=== PATIENT | female | born 1990 | race Hispanic/Latino ===

== ENCOUNTER 2017-09-19 08:30 | Outpatient (CLI) | payer OTHER | END 2017-09-19 08:31 | disposition home or self-care (01) | LOC: BICULT 08:30 | PROVIDERS: ATTEND Nurse Practitioner Women's Health | DX: N83.202 Unspecified ovarian cyst, left side (principal) | CPT/HCPCS: 76856 ==

== ENCOUNTER 2018-11-15 07:24 | Outpatient (CLI) | payer OTHER ==
--- NOTE | 2018-11-15 09:22 | MRI ---
MRI RIGHT KNEE WITHOUT CONTRAST: Date: 11/15/18 INDICATION: Right knee pain after fall. COMPARISON: Right knee radiograph dated 10/04/18. FINDINGS: No joint effusion is evident. No popliteal cyst is demonstrated. Articular cartilage of the patellofe moral compartment appears relatively well maintained. There is mild diffuse chondral thinning involvi ng the femorotibial compartments. The medial and lateral menisci are intact. The ACL, PCL, MCL, and LCLC are intact. There is some increased T2 signal undermining the IT band on image 12 of series 6 and image 16 of ser ies 1. Very mild subcortical edema is seen involving the lateral femoral condyle. IMPRESSION: 1. Findings most suspicious for IT band syndrome. 2. The ACL, PCL, MCL, and LCLC are intact. 3. The medial and lateral menisci are intact. 4. There is diffuse mild chondral thinning involving the femorotibial compartments. POS: TPC
== END 2018-11-15 07:25 | disposition home or self-care (01) ==
LOC: BICMRI 07:24
PROVIDERS: ATTEND Family Medicine
DX: M23.91 Unspecified internal derangement of right knee (principal)

== ENCOUNTER 2019-06-05 13:56 | Outpatient (CLI) | payer OTHER | END 2019-06-05 13:57 | disposition home or self-care (01) | LOC: DTY/OP 13:56 | PROVIDERS: ATTEND Surgery | DX: E66.01 Morbid (severe) obesity due to excess calories (principal) | CPT/HCPCS: 97802 ==

== ENCOUNTER 2019-07-04 10:29 | Outpatient (CLI) | payer OTHER | END 2019-07-04 10:30 | disposition home or self-care (01) | LOC: DTY/OP 10:29 | PROVIDERS: ATTEND Surgery | DX: E66.01 Morbid (severe) obesity due to excess calories (principal) | CPT/HCPCS: 97802 ==

== ENCOUNTER 2019-08-04 09:00 | Outpatient (CLI) | payer OTHER | END 2019-08-04 09:01 | disposition home or self-care (01) | LOC: DTY/OP 09:00 | PROVIDERS: ATTEND Surgery | DX: E66.01 Morbid (severe) obesity due to excess calories (principal) | CPT/HCPCS: 97802 ==

== ENCOUNTER 2019-10-23 13:19 | Outpatient (CLI) | payer OTHER ==
--- NOTE | 2019-10-23 14:21 | RAD ---
PA AND LATERAL CHEST: 10/23/19 HISTORY: Dyspnea. COMPARISON: 08/13/19 Lung ureña appear clear. No infiltrate identified. Heart and mediastinum unremarkable. Osseous struc tures unremarkable. No interval change noted. IMPRESSION: No acute process. POS: AGW
== END 2019-10-23 13:20 | disposition home or self-care (01) ==
LOC: BICRAD 13:19
PROVIDERS: ATTEND Internal Medicine Critical Care Medicine
DX: R06.00 Dyspnea, unspecified (principal)
CPT/HCPCS: 71046

== ENCOUNTER 2019-11-13 05:36 | Outpatient (CLI) | payer OTHER ==
[2019-11-13 11:15] LABS: #Basophils 0.1 thou/uL (0.0-0.2); #Eosinphils 0.3 thou/uL (0.0-0.7); #Lymphocytes 2.5 thou/uL (1.20-3.40); #Monocytes 0.5 thou/uL (0.11-0.59); #Neutrophils 4.5 thou/uL (1.40-6.50); %Basophils 0.8 % (0.0-1.0); %Eosinophils 4.1 % (0.0-10.0); %Lymphocytes 31.4 % (21.0-51.0); %Monocytes 6.8 % (0.0-10.0); Hemoglobin 14.7 g/dL (12.0-16.0); Mean Corpuscular HGB CONC 33.2 g/dL (32.0-36.0); Mean Corpuscular Hemoglobin 29.3 pg (27.0-31.0); Mean Corpuscular Volume 88.5 fL (78.0-98.0); Mean Platelet Volume 7.1 fL (7.4-10.4); Platelet Count 272 thou/uL (130-400); RBC Distribution Width 11.3 % (11.5-14.5); White Blood Cell (WBC) Count 7.9 thou/uL (4.8-10.8)
[2019-11-13 11:30] LABS: BHCG - Serum Negative (NEGATIVE); Pregs Control Background? CLEAR/WHITE (CLR/WHITE); Pregs Control Bar Appear? YES (CONTROL BAR)
[2019-11-13 11:44] LABS: ALT (SGPT) 58 U/L (8-55); AST (SGOT) 43 U/L (5-34); Albumin 4.3 g/dL (3.5-5.0); Alkaline Phosphatase 72 U/L (40-110); Anion Gap 12 mmol/L (10-20); BUN (Urea Nitrogen) 14 mg/dL (7.0-18.7); Bilirubin, Total 0.6 mg/dL (0.2-1.2); Calc. Creatinine Clearance 0 mL/min (70-130); Carbon Dioxide 26 mmol/L (22-29); Chloride 102 mmol/L (98-107); Estimated GFR-MDRD Greater than 90; Globulin 2.6 g/dL (2.4-3.5); Glucose 87 mg/dL (70-105); Hemoglobin A1c 5.2 % (4.0-6.0); Potassium 3.7 mmol/L (3.5-5.1); Protein, Total 6.9 g/dL (6.0-8.3); Sodium 136 mmol/L (136-145)
[2019-11-14 12:47] LABS: SARS-CoV-2 MS2 Positive; SARS-CoV-2 N Gene Negative; SARS-CoV-2 S Gene Negative; SARS-CoV-2 orf1ab Negative
== END 2019-11-13 05:37 | disposition home or self-care (01) ==
LOC: LABBT 05:36
PROVIDERS: ATTEND Surgery
DX: Z01.818 Encounter for other preprocedural examination (principal); Z11.59 Encounter for screening for other viral diseases; E66.01 Morbid (severe) obesity due to excess calories
CPT/HCPCS: 80053; 83036; 84703; 85025; 87635; 93005; 93010; U0003

== ENCOUNTER 2019-11-13 09:15 | Inpatient (IN) | payer OTHER ==
[2019-11-17] MEDS ORDERED: Ketorolac Tromethamine 30 MG/ML VIAL ONE (11:16)
[2019-11-17] MEDS ORDERED: Lidocaine 1% PF 5 ML VIAL ONE (11:16)
[2019-11-17] MEDS ORDERED: PROPOFOL 200 MG/20 ML VIAL ONE (11:16)
[2019-11-17] MEDS ORDERED: Ondansetron PF 4 MG/2 ML Vial ONE (11:16)
[2019-11-17] MEDS ORDERED: Dexamethasone 20 MG/5 ML VIAL ONE (11:16)
[2019-11-17] MEDS ORDERED: Rocuronium Bromide 10 MG/ML (10ML VIAL) ONE (11:16)
[2019-11-17] MEDS ORDERED: Heparin 5,000 UNITS/ML VIAL ONE (11:58)
[2019-11-17] MEDS ORDERED: Famotidine/PF 20 mg/2ml Vial ONE (12:28)
[2019-11-17] MEDS ORDERED: Midazolam HCl 2 mg/2 ml Vial ONE (12:28)
[2019-11-17] MEDS ORDERED: Bupivacaine 0.25% HCL 30 ML VIAL ONE (12:48)
[2019-11-17] MEDS ORDERED: Lidocaine 1% w/Epinephrine 1:100K 20 ML VIAL ONE (12:48)
[2019-11-17] MEDS ORDERED: Fentanyl 100 MCG/2 ML VIAL ONE ×3 (13:21→15:56)
[2019-11-17] MEDS ORDERED: SUGAMMADEX SODIUM 200 MG/2 ML VIAL ONE (14:21)
[2019-11-17] MEDS ORDERED: HYDROmorphone 2 MG/ML VIAL SLOW IVP PRN (15:25)
[2019-11-17] MEDS ORDERED: Meperidine HCl/PF 25 MG/ML VIAL SLOW IVP PRN (15:25)
[2019-11-17] MEDS ORDERED: Promethazine HCl 25 MG/ML VIAL SLOW IVP PRN (15:25)
[2019-11-17] MEDS ORDERED: Promethazine HCl 25 MG/ML VIAL IM PRN ×3 (15:25→16:21)
[2019-11-17] MEDS ORDERED: Meperidine HCl/PF 25 MG/ML VIAL ONE (15:33)
[2019-11-17] MEDS ORDERED: HYDROmorphone 0.5 MG/0.5 ML SYRINGE ONE (15:39)
[2019-11-17] MEDS ORDERED: Promethazine HCl 25 MG/ML VIAL ONE (15:41)
--- NOTE | 2019-11-17 15:44 | OP ---
DATE OF PROCEDURE: 11/17/2019 PREOPERATIVE DIAGNOSIS: Morbid obesity with a body mass index of 54. POSTOPERATIVE DIAGNOSES: 1. Morbid obesity with a body mass index of 54. 2. Paraesophageal hiatal hernia, moderate to large. PROCEDURES PERFORMED: 1. Laparoscopic sleeve gastrectomy with GORE staple line reinforcement and 38-Sinhala bougie. 2. Laparoscopic paraesophageal hiatal hernia repair without mesh for fundoplication. 3. Esophagogastroduodenoscopy. ANESTHESIA: General. ESTIMATED BLOOD LOSS: Minimal. COMPLICATIONS: None. SPECIMENS: Stomach. FINDINGS: Hiatal hernia. DESCRIPTION OF PROCEDURE: The patient was taken to the operating room and laid supine on the operating room table. After general anesthetic was obtained, the arms and legs were double strapped to bariatric table. The abdomen was shaved, prepped, and draped in a sterile fashion. A left subcostal 5-mm Optiview trocar placed in the usual fashion and high-flow pneumoperitoneum was obtained. A left and right abdominal 12-mm ports as well as a right subcostal 5-mm port were placed under direct visualization. A 5-mm incision was made at the xiphoid and a [place] was used to raise the liver off the GE junction. Short gastrics were taken down from the midbody of the stomach to the left salty of the diaphragm. Left salty, posterior fundus, and angle of His were completely dissected. There was a hiatal hernia found. The fundus of the stomach was dissected back into the abdominal cavity. A circumferential dissection of the esophagus was performed. The gastrohepatic ligament was opened as well. The GE junction and fundus were all back down into the abdominal cavity. A 38-bougie was brought and its tip left in the antrum of the stomach. The short gastrics were taken down to a distance of 6 cm proximal to the pylorus. Multiple loads of an [place] stapling device was used to form the sleeve. The first was fired up at a distance of 6 cm proximal to the pylorus and angled up towards the incisura. Care was taken to avoid being to close the incisura. Multiple loads were then fired along the bougie. Stomach was completely transected at the angle of His. Stomach was removed from the left abdominal incision. The fascial defect was closed using GraNee needle and Vicryl tie. The posterior salty was closed using interrupted Ethibond suture in a Ti-Knot system. Bougie was removed as well as the Marixa without injury. EGD scope was passed to the esophagus, stomach to the level of duodenum without obstruction. There was no stricture at the incisura. There was no involvement of the GE junction with the staple line. There was no leakage of air along the staple line. The EGD scope was used to decompress the stomach and was pulled and removed. All port sites were infiltrated using local anesthetic. All ports were removed under camera visualization. Pneumoperitoneum was let down. Vicryl was used to close the fascial defect from the left abdominal incisions. All incisions were irrigated and closed using 4-0 Monocryl and Dermabond. The patient was sent to Recovery in stable condition. All instrument counts, needle counts, and lap counts were correct. Job ID: [id number]
[2019-11-17] MEDS ORDERED: diphenhydrAMINE 50 MG/ML VIAL IVP PRN ×2 (16:13→16:21)
[2019-11-17] MEDS ORDERED: hydrALAZINE 20 MG/ML VIAL SLOW IVP PRN (16:13)
[2019-11-17] MEDS ORDERED: Hydrocodone-Acetamin 15 ML UDCUP PO PRN (16:13)
[2019-11-17] MEDS ORDERED: Ondansetron PF 4 MG/2 ML Vial IVP PRN ×2 (16:13→16:21)
[2019-11-17] MEDS ORDERED: Dextrose 50% Abboject 50 ML SYRINGE SLOW IVP PRN (16:13)
[2019-11-17] MEDS ORDERED: Dextrose 5% in Water 1,000 ML IV PRN (16:13)
[2019-11-17] MEDS ORDERED: diphenhydrAMINE 25 MG CAP PO PRN (16:21)
[2019-11-17] MEDS ORDERED: fentaNYL Citrate/PF 2,000 MCG in Sodium Chloride 0.9% 60 ML IV PRN (16:21)
[2019-11-17] MEDS ORDERED: diphenhydrAMINE 50 MG/ML VIAL IM PRN (16:21)
[2019-11-17] MEDS ORDERED: Naloxone HCl 0.4 mg/ml Vial IV PRN (16:21)
[2019-11-17] MEDS ORDERED: Zolpidem Tartrate 5 MG TAB PO PRN (16:21)
[2019-11-17] MEDS ORDERED: Communication Order-Pharmacy FS SCH (16:30)
[2019-11-17] MEDS: D5 1/2 NS w/20 mEq KCL 1,000 ML IV SCH (17:32)
[2019-11-17 17:53] VITALS: BMI 50.7
[2019-11-17] MEDS ORDERED: Enoxaparin Sodium 40 MG/0.4 ML SYRINGE SC SCH (21:00)
[2019-11-17] MEDS ORDERED: Non-Formulary Item 1 EACH (Symbicort 2 PUFF) INH SCH (21:00)
[2019-11-18] MEDS: D5 1/2 NS w/20 mEq KCL 1,000 ML IV SCH ×3 (05:01→17:18)
[2019-11-18 06:04] LABS: #Lymphocytes 1.5 thou/uL (1.20-3.40); #Monocytes 0.8 thou/uL (0.11-0.59); #Neutrophils 8.5 thou/uL (1.40-6.50); %Basophils 0.1 % (0.0-1.0); %Eosinophils 0.1 % (0.0-10.0); %Lymphocytes 14.3 % (21.0-51.0); %Monocytes 6.9 % (0.0-10.0); %Neutrophils 78.6 % (42.0-75.0); Hemoglobin 12.8 g/dL (12.0-16.0); Mean Corpuscular HGB CONC 33.1 g/dL (32.0-36.0); Mean Corpuscular Hemoglobin 29.7 pg (27.0-31.0); Mean Corpuscular Volume 89.7 fL (78.0-98.0); Mean Platelet Volume 6.9 fL (7.4-10.4); Platelet Count 269 thou/uL (130-400); RBC Distribution Width 11.3 % (11.5-14.5); White Blood Cell (WBC) Count 10.8 thou/uL (4.8-10.8)
[2019-11-18 06:24] LABS: Anion Gap 13 mmol/L (10-20); BUN (Urea Nitrogen) 6 mg/dL (7.0-18.7); Calc. Creatinine Clearance 257 mL/min (70-130); Calcium 8.8 mg/dL (7.8-10.44); Carbon Dioxide 24 mmol/L (22-29); Chloride 105 mmol/L (98-107); Estimated GFR-MDRD Greater than 90; Glucose 116 mg/dL (70-105); Potassium 4.5 mmol/L (3.5-5.1); Sodium 137 mmol/L (136-145)
[2019-11-18] MEDS ORDERED: clonazePAM 1 MG TAB PO SCH (09:00)
[2019-11-18] MEDS ORDERED: Pantoprazole 40 MG VIAL IVP SCH (09:00)
[2019-11-18] MEDS: Hydrocodone-Acetamin 15 ML UDCUP PO PRN ×3 (09:22→16:33)
--- NOTE | 2019-11-18 11:38 | DIS ---
DATE OF ADMISSION: 11/17/2019 DATE OF DISCHARGE: 11/18/2019 ADMIT DIAGNOSIS: Morbid obesity. DISCHARGE DIAGNOSIS: Morbid obesity. PROCEDURES: Laparoscopic sleeve by Dr. Fleming without complication. CONDITION ON DISCHARGE: Improved. HOSPITAL COURSE: On postop day 1, the patient is doing well. She is tolerating liquid diet, complaining of pain at her extraction site, but she is ambulatory. ASSESSMENT: Postoperative day 1, laparoscopic sleeve. PLAN: Discharged home later today as long as nausea is improved. Return to see me in the office in 2 weeks. Job ID: [id number]
[2019-11-18 15:51] VITALS: BP 122/82; TEMP 97.9
== END 2019-11-18 18:00 | disposition home or self-care (01) | DRG 621 ==
LOC: SURG A 11-17 10:56
PROVIDERS: ADMIT Surgery; ATTEND Surgery
PROC: 0DB64Z3 Excision of Stomach, Percutaneous Endoscopic Approach, Vertical (ICD-10-PCS; principal; 2019-11-17)
PROC: 0BQT4ZZ Repair Diaphragm, Percutaneous Endoscopic Approach (ICD-10-PCS; 2019-11-17)
PROC: 0DJ08ZZ Inspection of Upper Intestinal Tract, Via Natural or Artificial Opening Endoscopic (ICD-10-PCS; 2019-11-17)
DX: E66.01 Morbid (severe) obesity due to excess calories (principal); K44.9 Diaphragmatic hernia without obstruction or gangrene; J45.909 Unspecified asthma, uncomplicated; F32.9 Major depressive disorder, single episode, unspecified; F41.9 Anxiety disorder, unspecified; Z68.43 Body mass index [BMI] 50.0-59.9, adult; Z79.899 Other long term (current) drug therapy
CPT/HCPCS: 36415; 80048; 85025; 88307; 88312; 94760; C9113; J0690; J1100; J1170; J1644; J1650; J1885; J2175; J2250; J2405; J2550; J2704; J3010; J3480; S0020; S0028

== ENCOUNTER 2019-12-01 09:54 | Day surgery (SDC) | payer OTHER ==
[2019-12-01] MEDS ORDERED: Sodium Chloride 0.9% 20 ML ONE (10:21)
[2019-12-01] MEDS ORDERED: Multivitamins, Adult 10 ML, Thiamine HCl 100 MG in Sodium Chloride 0.9% 1,000 ML IV SCH (10:30)
[2019-12-01] MEDS ORDERED: Sodium Chloride 0.9% 1,000 ML IV SCH (10:30)
[2019-12-01 14:48] VITALS: BP 117/59
== END 2019-12-01 14:52 | disposition home or self-care (01) ==
LOC: ONC/OP 09:54
PROVIDERS: ATTEND Surgery
DX: E86.0 Dehydration (principal)
CPT/HCPCS: 96361; 96365; 96366; J3411; J7050

== ENCOUNTER 2020-05-29 04:05 | Observation (INO) | payer OTHER ==
[2020-05-29] MEDS ORDERED: Ketorolac Tromethamine 30 MG/ML VIAL ONE (04:19)
[2020-05-29] MEDS ORDERED: Ondansetron PF 4 MG/2 ML Vial ONE ×3 (04:19→08:17)
[2020-05-29 04:42] LABS: #Basophils 0.1 thou/uL (0.0-0.2); #Eosinphils 0.1 thou/uL (0.0-0.7); #Lymphocytes 2.5 thou/uL (1.20-3.40); #Monocytes 0.3 thou/uL (0.11-0.59); #Neutrophils 4.3 thou/uL (1.40-6.50); %Basophils 0.7 % (0.0-1.0); %Eosinophils 1.6 % (0.0-10.0); %Lymphocytes 34.8 % (21.0-51.0); %Monocytes 4.5 % (0.0-10.0); %Neutrophils 58.4 % (42.0-75.0); Hemoglobin 14.7 g/dL (12.0-16.0); Mean Corpuscular Hemoglobin 31.7 pg (27.0-31.0); Mean Corpuscular Volume 93.2 fL (78.0-98.0); Mean Platelet Volume 7.1 fL (7.4-10.4); Platelet Count 234 thou/uL (130-400); Red Blood Cell (RBC) Count 4.62 mill/uL (4.20-5.40); White Blood Cell (WBC) Count 7.3 thou/uL (4.8-10.8)
[2020-05-29 04:46] LABS: BHCG - Serum Negative (NEGATIVE); Pregs Control Background? CLEAR/WHITE (CLR/WHITE); Pregs Control Bar Appear? YES (CONTROL BAR)
[2020-05-29 05:11] LABS: ALT (SGPT) 19 U/L (8-55); AST (SGOT) 34 U/L (5-34); Albumin 4.5 g/dL (3.5-5.0); Alkaline Phosphatase 73 U/L (40-110); Anion Gap 18 mmol/L (10-20); BUN (Urea Nitrogen) 24 mg/dL (7.0-18.7); Bilirubin, Total 0.5 mg/dL (0.2-1.2); Calc. Creatinine Clearance 0 mL/min (70-130); Calcium 9.8 mg/dL (7.8-10.44); Carbon Dioxide 21 mmol/L (22-29); Chloride 104 mmol/L (98-107); Globulin 3.8 g/dL (2.4-3.5); Glucose 82 mg/dL (70-105); Potassium 4.6 mmol/L (3.5-5.1); Protein, Total 8.3 g/dL (6.0-8.3); Sodium 138 mmol/L (136-145)
[2020-05-29] MEDS ORDERED: Morphine 4 MG/ML VIAL ONE ×2 (05:47→08:17)
--- NOTE | 2020-05-29 07:29 | HP ---
TIME OF EVALUATION: Roughly 0620 in ER bed #1. The patient is seen at bedside with Dr. Flores, who is the emergency room provider. CHIEF COMPLAINT: Right-sided lower pelvic pain that was relatively acute onset. 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 She had some nausea associated with it. I was contacted by the emergency room provider because their pelvic ultrasound did not find a mass, but the Sono bench repair technician stated "could not see deep enough." She also was not sure about flow, although she thought she had seen some flow. To help get more information, a pelvic CT was obtained which did not show any distinct masses. REVIEW OF SYSTEMS: A complete review of systems was done at bedside and is otherwise negative unless specified in the HPI. Specifically: GENERAL: No sick contacts. No fever. No chills. PULMONARY: No shortness of breath. CARDIOVASCULAR: No chest pain. : No dysuria. No pain on urination. GI: No constipation or diarrhea. PAST MEDICAL HISTORY: Negative. PAST SURGICAL HISTORY: Gastric sleeve. ALLERGIES: NONE. MEDICATIONS: 1. Albuterol. 2. Sertraline. 3. Multivitamin. SOCIAL HISTORY: Negative for alcohol, tobacco, and drug use. PHYSICAL EXAMINATION: VITAL SIGNS: Her blood pressure is 123/86 with a pulse of 77, she is afebrile. I performed a physical exam: GENERAL: She looks uncomfortable, but is in no acute distress. ABDOMEN: Soft without rebound. She does have some tenderness on deep palpation, suprapubic, and on the right. PELVIC: Deferred LABORATORY DATA: Labs find a white blood cell count that is normal at 7, hematocrit is 43. AST and ALT are normal. test is negative. CT pelvis: I reviewed the films with the ED physician this AM...there is no abnormality noted in the pelvis. ASSESSMENT: This is a 30-year-old, G0, who was at midcycle with right-sided sharp abdominal pain, not otherwise specified. CT scan and ultrasound are negative for any kind of mass. PLAN: 1. I am putting the patient into the gynecology buck[facility] for observation. The emergency room calls me for concern of torsion. Well I understand the acute onset and the clinical presentation, not having a mass and having a negative CT and an ultrasound points away from this diagnosis for me. Nonetheless, I am not sure if this is musculoskeletal, midcycle ovulatory pain, versus possibly torsion of something that we were not seen. I have explained this to the patient. 2. I will keep her n.p.o. for now. 3. IV fluids. 4. Toradol p.r.n. 5. I have called the OR and I have not scheduled her for surgery, but I just made them aware of our condition in case the abdominal exam progresses in severity. 6. I will give report to the oncoming physician, which is at 8 a.m., but for now I am not sure of the etiology of her discomfort. Job ID: [id number] MTDD
--- NOTE | 2020-05-29 08:41 | ULT ---
PRELIMINARY REPORT/[facility]/EMERGENCY AFTER HOURS PROCEDURE: EXAM: US Pelvis, Complete. CLINICAL HISTORY: HX: SEVER RLQ PAIN, HX OF PREV CYST. TECHNIQUE: Transvaginal and transabdominal pelvic ultrasound (complete) with image documentation. COMPARISON: None provided. FINDINGS: ENDOMETRIUM: Normal thickness. UTERUS/CERVIX: Normal size and contour. No fibroid detected. Measures 6.5 x 2.8 x 3.6 cm RIGHT OVARY: Normal follicles. No adnexal mass. Measures 2.1 x 1.5 x 3.8 cm although was difficult to visualize due to its position and flow could not be adequately visualized LEFT OVARY: Normal follicles. No adnexal mass. Normal blood flow. Measures 2.4 x 1.7 x 2.7 cm FREE FLUID: No free fluid. IMPRESSION: Visualization of the RIGHT ovary was impaired due to positioning and flow could not be vi sualized, therefore right-sided ovarian torsion cannot be excluded ELECTRONICALLY SIGNED BY: Dino Dawson MD May 29, 2020 5:29:27 AM SHOT EXAMINER FINAL REPORT ULTRASOUND PELVIC ULTRASOUND TRANSVAGINAL DOPPLER DUPLEX: DATE: 05/29/2020. TIME: 5:09 AM. HISTORY: a 30-year-old female with severe right-sided pelvic pain. TECHNIQUE: Transabdominal transducer and endovaginal transducer used to visualize intrapelvic contents with carpio scale, color-flow, and spectral analysis. FINDINGS: Uterus:6.5 x 3 x 3.5 cm.. Endometrial stripe: Poorly visualized. Not measured. Right ovary: Sheet Manager has typed "2.1 x 1.6 x 3.9 cm." However, there are transabdominal images wh ich measure a structure as approximately 4.9 x 1.5 x 2.2 cm. This is labeled as the right ovary. No flow is detected. It is uncertain whether or not this is actually the right ovary. Left ovary:2.5 x 1.7 x 2.7 cm.. Uterine leiomyoma (fibroid):None. Blood flow in ovaries: Flow demonstrated in left ovary. No flow demonstrated in the structure labeled as the right ovary. Ovarian cyst:None. Free fluid in the cul-de-sac:None. No major disagreement with preliminary report by [facility]. IMPRESSION: An approximate 5 cm structure on the right side labeled by the kettle operator as the right ovary, withou t blood flow demonstrated. It is uncertain whether or not this is actually the right ovary, and if not, there is uncertainty regarding exactly what it is. Transcribed Date/Time: 05/29/2020 9:00 AM
--- NOTE | 2020-05-29 09:02 | CT ---
PRELIMINARY REPORT/[facility]/EMERGENCY AFTER HOURS PROCEDURE: ABDOMINAL AND PELVIC CT WITHOUT IV CONTRAST TECHNIQUE: Non-IV contrast-enhanced axial CT images were obtained through the abdomen and pelvis. Mul tiplanar reformats were provided. History: Right lower quadrant pain Comparison: None FINDINGS: No acute basilar lung abnormality noted. Changes of previous gastric surgery noted. Unenhanced images of the liver and spleen are unremarkable. The gallbladder and biliary system are un remarkable. The adrenal glands appear normal. The unenhanced appearance of both kidneys is unremarkable. No radiodense urinary calculi noted. There is no hydronephrosis or perinephric strand ing. The bladder is unremarkable. The appendix appears normal. The uterus is unremarkable on the basis of CT imaging. Both ovaries are partially obscured by unopacified pelvic bowel loops. No obvi ous adnexal abnormality noted on the basis of CT imaging. No acute bowel abnormality noted. Bowel loops are unremarkable. There is no free fluid or acute inflammatory stranding. The abdominal aorta is non-aneurysmal. Visualized osseous structures are unremarkable for patient's age. IMPRESSION: No acute inflammatory process in the abdomen or pelvis. No radiodense urinary calculi. N o obstructive uropathy. Normal appendix. ELECTRONICALLY SIGNED BY: Torito Gomez MD May 29, 2020 5:50:15 AM SAP BUSINESS ANALYST FINAL REPORT CT ABDOMEN NONCONTRAST CT PELVIS NONCONTRAST: (Urolithiasis protocol) DATE: 05/29/2020. TIME: 5:34 AM. HISTORY: A 30-year-old female with right lower quadrant abdominal pain. History of ovarian cysts. COMPARISON: 09/24/2015. TECHNIQUE: IV injection of iodinated contrast media: None. Oral contrast media: None. FINDINGS: Other than for urolithiasis, the lack of IV and oral contrast limits the evaluation. There is an apparently new finding of an approximately 3.5 x 2.5 x 2 cm soft tissue attenuation struc ture broadly abutting the posterior serosal surface of an anteflexed uterine body. The uterine body and fundus are positioned in the right side of the pelvis. There is no surrounding fat stranding. There are no renal, ureteral, or bladder calculi. Suture line around a small stomach. Normal appendix. No small bowel dilation, colonic diverticulitis, ascites, pneumoperitoneum, pleural effusion, or basi lar pulmonary consolidation. Within the limitations of a noncontrast scan, no abnormality is identified involving liver, abdominal aorta, pancreas, kidneys, adrenals, spleen, or urinary bladder. No major osseous abnormality. No major disagreement with preliminary report by [facility]. IMPRESSION: 1) In general, other than for urolithiasis, CTs of abdomen and pelvis should be performed with IV con trast. 2) A 3.5 cm soft tissue attenuation structure in the right adnexa broadly abutting the uterus. Uncert ain whether or not this represents the right ovary. 3) If patient's symptoms persist, further evaluation with CT of abdomen and pelvis with IV contrast a nd oral contrast, with long bowel prep, is recommended. 4) No urolithiasis or obstructive uropathy. No other potential pathology. Transcribed Date/Time: 05/29/2020 9:16 AM
[2020-05-29] MEDS ORDERED: traMADol HCl 50 MG TAB PO PRN ×2 (10:19)
[2020-05-29] MEDS ORDERED: Ondansetron ORAL SOLN. 4 MG/5 ML UDCUP PO PRN (10:20)
[2020-05-29] MEDS ORDERED: Ketorolac Tromethamine 30 MG/ML VIAL IVP PRN (10:21)
--- NOTE | 2020-05-29 10:42 | PRG ---
DATE OF SERVICE: 05/29/2020 TIME OF SERVICE: 1010 hours. SUBJECTIVE: Ms. Phillip is on the floor. She is resting comfortably. She pain at 6. She denies significant appetite. She denies abdominal distention. She states her pain is somewhat better with her knees bent. OBJECTIVE: VITAL SIGNS: Reveals vital signs stable. Pulse is 85, respirations 18, temperature 98.2. ABDOMEN: Reveals discomfort to palpation in the right lower quadrant without rebound and without significant guarding. extend down to the level of the inguinal canal. There is no CVA tenderness noted. LABORATORY DATA: Reviewed from admission. IMPRESSION: Right lower quadrant pain, uncertain etiology. Negative ultrasound. No evidence of torsion. No elevated white count. No evidence of appendicitis on CT scan. The patient reports that she has had this pain before, this kind of come and gone, but this is the worst it has been. PLAN: Continued observation. Advance to clear liquid diet. director government to tramadol for pain control and repeat CBC at 1800 hours. Anticipate probable discharge home with presumptive diagnosis of mesenteric adenitis with follow her primary care provider. We will re-evaluate this evening. Job ID: [id number]
[2020-05-29] MEDS ORDERED: Polyethylene Glycol 3350 17 GM Packet PO PRN (10:50)
[2020-05-29 11:01] VITALS: BMI 37.9
[2020-05-29] MEDS: Lactated Ringer's 1,000 ML IV SCH ×3 (11:46→20:51)
[2020-05-29] MEDS: Polyethylene Glycol 3350 17 GM Packet PO SCH (11:46)
[2020-05-29] MEDS ORDERED: Ketorolac Tromethamine 30 MG/ML VIAL IVP SCH (12:00)
[2020-05-29 18:14] LABS: #Basophils 0.1 thou/uL (0.0-0.2); #Eosinphils 0.2 thou/uL (0.0-0.7); #Lymphocytes 2.2 thou/uL (1.20-3.40); #Monocytes 0.4 thou/uL (0.11-0.59); #Neutrophils 2.6 thou/uL (1.40-6.50); %Basophils 1.4 % (0.0-1.0); %Eosinophils 3.4 % (0.0-10.0); %Lymphocytes 40.7 % (21.0-51.0); %Monocytes 7.9 % (0.0-10.0); %Neutrophils 46.7 % (42.0-75.0); Mean Corpuscular HGB CONC 34.5 g/dL (32.0-36.0); Mean Corpuscular Hemoglobin 32.3 pg (27.0-31.0); Mean Corpuscular Volume 93.6 fL (78.0-98.0); Mean Platelet Volume 6.9 fL (7.4-10.4); Platelet Count 168 thou/uL (130-400); RBC Distribution Width 10.9 % (11.5-14.5); Red Blood Cell (RBC) Count 3.72 mill/uL (4.20-5.40); White Blood Cell (WBC) Count 5.5 thou/uL (4.8-10.8)
[2020-05-29] MEDS ORDERED: Ondansetron PF 4 MG/2 ML Vial IVP PRN (20:17)
--- NOTE | 2020-05-29 20:25 | PDOC.FPRHP ---
- Allergies/Adverse Reactions Allergies Allergy/AdvReac Type Severity Reaction Status Date / Time No Known Allergies Allergy Verified 05/29/20 10:58 - Home Medications Medication Instructions Recorded Confirmed Type Sertraline HCl 100 mg PO QAM 11/11/19 05/29/20 History Albuterol Sulfate [Albuterol 2 puff INH BID 11/17/19 05/29/20 History Sulfate Hfa] - History PMHx: PSHx: FHx: Social: - Vital signs BP: [] HR: [] RR: [] Tmax: [] Pox: []% on [] Wt: [] FMR H&P: Results - Labs Result Diagrams: 05/29/20 18:03 05/29/20 04:19 Lab results: WBC 5.5 thou/uL (4.8-10.8) 05/29/20 18:03 Hgb 12.0 g/dL (12.0-16.0) 05/29/20 18:03 Hct 34.8 % (36.0-47.0) L 05/29/20 18:03 MCV 93.6 fL (78.0-98.0) 05/29/20 18:03 Plt Count 168 thou/uL (130-400) 05/29/20 18:03 Neutrophils % 46.7 % (42.0-75.0) 05/29/20 18:03 Sodium 138 mmol/L (136-145) 05/29/20 04:19 Potassium 4.6 mmol/L (3.5-5.1) 05/29/20 04:19 Chloride 104 mmol/L (98-107) 05/29/20 04:19 Carbon Dioxide 21 mmol/L (22-29) L 05/29/20 04:19 BUN 24 mg/dL (7.0-18.7) H 05/29/20 04:19 Creatinine 0.65 mg/dL (0.6-1.1) 05/29/20 04:19 Glucose 82 mg/dL (70-105) 05/29/20 04:19 Calcium 9.8 mg/dL (7.8-10.44) 05/29/20 04:19 Total Bilirubin 0.5 mg/dL (0.2-1.2) 05/29/20 04:19 AST 34 U/L (5-34) 05/29/20 04:19 ALT 19 U/L (8-55) 05/29/20 04:19 Alkaline Phosphatase 73 U/L (40-110) 05/29/20 04:19 Serum Total Protein 8.3 g/dL (6.0-8.3) 05/29/20 04:19 Albumin 4.5 g/dL (3.5-5.0) 05/29/20 04:19 FMR H&P: Upper Level - Plan Date/Time: 05/29/202024 I, [], have evaluated this patient and agree with findings/plan as outlined by international representative resident. Pertinent changes/additions are listed here.
--- NOTE | 2020-05-29 22:44 | ULT ---
US Abdominal: 05/29/2020 8:12 PM CLINICAL HISTORY: Abdominal pain. STUDY: Complete abdominal ultrasound COMPARISON: None. FINDINGS: Liver: Size: Normal. Echogenicity: Normal. Contour: Smooth. Mass: None. Common bile duct: 3 mm Gallbladder: Normal. Pancreas: Not visualized Inferior vena cava: Normal in caliber Aorta: Normal in caliber Spleen: No focal lesions. Spleen measuring 10.8 cm in length. Right kidney: No pelvicalyceal dilatation. Right kidney measuring 10.2 cm in length. Left kidney: No pelvicalyceal dilatation. Left kidney measuring 11.0 cm in length. IMPRESSION: Unremarkable exam.
[2020-05-29 23:15] LABS: ALT (SGPT) 14 U/L (8-55); AST (SGOT) 18 U/L (5-34); Albumin 3.3 g/dL (3.5-5.0); Alkaline Phosphatase 51 U/L (40-110); Anion Gap 13 mmol/L (10-20); BUN (Urea Nitrogen) 15 mg/dL (7.0-18.7); Bilirubin, Total 0.6 mg/dL (0.2-1.2); Calc. Creatinine Clearance 219 mL/min (70-130); Calcium 8.3 mg/dL (7.8-10.44); Carbon Dioxide 24 mmol/L (22-29); Chloride 106 mmol/L (98-107); Globulin 2.3 g/dL (2.4-3.5); Glucose 72 mg/dL (70-105); Lipase 46 U/L (8-78); Potassium 4.1 mmol/L (3.5-5.1); Protein, Total 5.6 g/dL (6.0-8.3); Sodium 139 mmol/L (136-145)
[2020-05-30 02:30] LABS: SARS-CoV-2 PCR by NAA Not Detected (NotDetected)
[2020-05-30] MEDS: Lactated Ringer's 1,000 ML IV SCH (06:50)
--- NOTE | 2020-05-30 07:35 | PRG ---
DATE OF SERVICE: 05/30/2020 SUBJECTIVE: Ms. Phillip is resting comfortably. She states her pain has decreased and it is more on a 4 to 5 level now than 6 to 7 before. She did have some nausea overnight. No emesis. OBJECTIVE: VITAL SIGNS: Temperature 97.9, pulse 71, respirations 18, blood pressure 111/65. ABDOMEN: Soft and nondistended. She has bowel sounds in all 4 quadrants. She has mild discomfort to deep palpation in the right lower quadrant. No CVA tenderness noted. LABORATORY DATA: Laboratory workup was completed to make sure the patient did not have any pancreatitis symptoms secondary to her history of gastric sleeve and obesity. Her white count has actually decreased from 7.3 to 5.5. Hematocrit remained stable. Her hematocrit is 35.8. Creatinine is normal at 0.59, and LFTs are normal. COVID-19 is negative. Final report on her abdominal CT from early in the morning of the was obtained which revealed a normal appendix. There is really no definitive findings of possible 5.2 cm soft tissue attenuation in the right adnexa abutting the uterus, probably the right ovary. There was no free fluid noted. Ultrasound was poor technique and not well visualize the right adnexa, but no large mass or significant free fluid was noted. Abdominal ultrasound examining the gallbladder and liver was unremarkable. IMPRESSION: Right lower quadrant pain of uncertain etiology. Suspect resolving cyst and doubt torsion. PLAN: We will repeat ultrasound today and hopefully obtain better technique images. If torsion is present, any cyst that would be present would be enlarged and more definitive over 24 to 36 hours ago and free fluid would be anticipated. If ultrasound is normal, anticipate probable discharge home with close followup. Dr. Isbell will be OB hospitalist taking over at 0800 hours. Job ID: [id number]
[2020-05-30 09:51] VITALS: BP 116/57; TEMP 98.1
--- NOTE | 2020-05-30 09:54 | DIS ---
DATE OF ADMISSION: 05/29/2020 DATE OF DISCHARGE: 05/30/2020 RESIDENT: Sharda Carter, PGY-3. CONSULTS: None. PROCEDURES: 1. Transvaginal ultrasound on 05/29/2020 with an approximate 5 cm structure on the right side labeled as ovary without blood flow demonstrated. Otherwise, the exam is unremarkable. No fibroids or free fluid. 2. Abdominal pelvis CT on 05/29/2020. No acute inflammatory process in the abdomen or pelvis. No radiodense urinary calculi. No obstructive uropathy. Normal appendix. 3. Abdominal ultrasound on 05/29/2020, unremarkable exam. 4. Transvaginal ultrasound on 05/30/2020. Official report read pending. Images reviewed in room. Right ovary visualized with flow, some minimal free fluid noted in the pelvis. 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 MEDICATIONS: Discharge medications; 1. Tylenol 650 as needed. 2. Albuterol. 3. Sertraline. Discontinued medication: None. HISTORY OF PRESENT ILLNESS/HOSPITAL COURSE: Carole is a 30-year-old, G0, who presented with right-sided abdominal pain associated with nausea, vomiting. Pain was sudden, constant, and slowly improved throughout the hospital course. She is noted to be midcycle, last menstrual period on 05/11. CT and ultrasound findings were unremarkable. Abdominal ultrasound unremarkable. Her labs have been all within normal limits. Lipase and CRP negative. test is negative. Electrolytes all within normal limits. Her COVID test was negative. She was kept n.p.o. and started on IV fluids and Toradol and tramadol for pain relief. She cannot take p.o. NSAIDs due to history of gastric bypass. Throughout the course of her hospitalization, her pain slowly improved to the point that she was able to tolerate diet and no longer needing pain medication. We recommend that she keep a pain diary at home. Instructed to follow up with her scientific laboratory supervisor. We have ruled out the ovarian torsion, appendicitis, ectopic , and other emergent conditions. She felt that she is safe to discharge home. DISPOSITION: Stable. DISCHARGE INSTRUCTIONS: 1. Location: Home. 2. Diet: Gastric bypass diet. 3. Activity: No restrictions. 4. Follow up with PCP as needed. Job ID: [id number] [facility]
[2020-05-30] MEDS: Polyethylene Glycol 3350 17 GM Packet PO SCH (10:42)
--- NOTE | 2020-05-30 11:12 | ULT ---
ULTRASOUND TRANSVAGINAL DOPPLER DUPLEX: DATE: 05/30/2020 HISTORY: 30-year-old female with right-sided pelvic pain. Right ovary not definitely identified on yesterday's ultrasound. TECHNIQUE: endovaginal transducer used to visualize intrapelvic contents with grayscale, color-flow, and spectra l analysis. FINDINGS: Completely different in location and appearance from yesterday's finding labeled as "right ovary", th ere is a structure in the right adnexa on today's study that is indeed the right ovary, containing multiple follicles. It measures approximately 3.5 x 2 x 2.5 cm. Blood flow is demonstrated in the rig ht ovary by Doppler. There is a tiny amount of free fluid abutting the right ovary. No gross abnormality of the uterus. No free fluid in the cul-de-sac. Endometrial stripe 4 mm. Left ovary has a similar appearance, with blood flow. IMPRESSION: 1. Prominent follicles in bilateral ovaries, with blood flow. 2. Small amount of free fluid at right adnexa. 3. Otherwise negative..
--- NOTE | 2020-05-31 11:19 | PDOC.BPN ---
- Brief Progress Note Post DC NOTE FOR RECENT STAY: Requested by admin to change status to OUTPATIENT vs inpatient. Agree that this stay was OBSERVATION for pelvic pain. Inpatient not required. Please see noted by the discharging team as I was not prsent for patient final eval and DC.
== END 2020-05-30 11:15 | disposition home or self-care (01) ==
LOC: ERS 04:05 → 3SW 06:48 → OBSVTOIN 20:11 → INTOOBSV 20:11
PROVIDERS: ADMIT Obstetrics & Gynecology; ATTEND Obstetrics & Gynecology
DX: R10.2 Pelvic and perineal pain (principal); R11.2 Nausea with vomiting, unspecified; Z79.899 Other long term (current) drug therapy; Z20.822 Contact with and (suspected) exposure to COVID-19
CPT/HCPCS: 36415; 74176; 76856; 76857; 80053; 82150; 83690; 84703; 85025; 86140; 87635; 93975; 96374; 96375; 96376; G0378; J1885; J2270; J2405; Q0162; U0003; U0005

== ENCOUNTER 2024-05-27 08:53 | Outpatient (CLI) | payer BC | END 2024-05-27 08:54 | disposition home or self-care (01) | LOC: SCSRAD 08:53 | PROVIDERS: ATTEND Physician Assistant | DX: S99.922A Unspecified injury of left foot, initial encounter (principal); M77.32 Calcaneal spur, left foot ==